=== PATIENT | male | born 1985 | race Caucasian/White ===

== ENCOUNTER → 2024-01-31 11:13 | Outpatient (REF) | payer OTHER, SELFPAY | LOC: CLAB 11:13 | PROVIDERS: ATTENDING PHYSICIAN Specialist | DX: Z30.2 Encounter for sterilization (principal) | CPT/HCPCS: 88302 ==

== ENCOUNTER 2024-05-22 07:37 | Emergency (ER) | payer OTHER, SELFPAY ==
[2024-05-22 07:44] VITALS: BP 130/80
[2024-05-22 08:21] LABS: COVID-19 Antigen Negative (Negative)
--- NOTE | 2024-05-22 08:33 | ED.GENMED ---
History of Present Illness
General
Chief Complaint: Cold/Flu/URI Symptoms
Source: patient
Exam Limitations: none
Time Seen by Provider: 05/22/24 08:26
Nursing documentation reviewed up to this point in time: agreed with
History of Present Illness
History of Present Illness:
38-year-old male presenting to the emergency department today with concerns of fever cough congestion body aches over the past 5 days. Also noticed some noise from his lungs. Has been using his daughter's inhaler at home with some improvement.
Also has been on a Z-Farhat over the past 5 days last dose yesterday. Denies significant chest pain denies significant chronic medical conditions.
Past History
Past History
ED Past Medical History: None; Negative HTN, Hypercholesterolemia, IDDM or NIDDM
ED Past Surgical History: Orthopedic (Right knee surgery, Right and left shoulder surgery. )
Social History
Tobacco: Non-smoker
Alcohol: Occasional
Personal:
Living: with family
Employment: Employed
Review of Systems
Review of Systems
Allergies reviewed?: Yes
All Other Systems: ROS reviewed and negative except as documented in HPI and ROS
Phy Exam
Physical Exam
Physical Exam:
GENERAL: Alert , in no apparent distress
EYE: pupils equal and reactive
NECK: Supple, no significant adenopathy.
ENT: o/p clr, mmm.
CARDIAC: Regular rate and rhythm .
LUNGS: Very slight end expiratory wheeze otherwise clear breath sounds bilaterally, no acute respiratory distress, no rales or rhonchi
ABDOMEN: Soft, without focal tenderness, no r/g, no cvat
NEUROLOGICAL: Alert and oriented, no focal neuro deficits
SKIN: Warm and dry, skin intact.
MUSCULOSKELETAL: No edema, well perfused.
PSYCH: Normal and appropriate interaction.
Course
Orders/Labs/Results
Orders:
Orders
05/22/24 07:50
COVID-19 Antigen Urgent
Source: Nasal Swab
Influenza A+B Rapid Molecular Urgent
NATI Source: Nasal Swab
Specimen Description:
05/22/24 08:33
Dexamethasone [Decadron] 10 mg PO NOW STA
Vital Signs
Initial and Last Documented VS:
Initial Vital Signs
Temp Pulse Resp BP Pulse Ox
98.1 F 85 18 130/80 100
05/22/24 07:44 05/22/24 07:44 05/22/24 07:44 05/22/24 07:44 05/22/24 07:44
Last Documented Vital Signs
Temp Pulse Resp BP Pulse Ox
98.1 F 85 18 130/80 100
05/22/24 07:44 05/22/24 07:44 05/22/24 07:44 05/22/24 07:44 05/22/24 07:44
MDM/Problems Addressed
MDM/Problems Addressed:
38-year-old male presenting to the emergency department with upper respiratory symptoms over the past 5 days. Here vital signs are normal afebrile. Patient positive for the flu which does explain patient's symptoms. Lungs have a very slight
expiratory wheeze he was given steroids for this but otherwise stable for outpatient management. No rales no evidence of secondary pneumonia. Patient has been on the antibiotic. Return precautions given otherwise.
*Critical Care Note
Total Time (30-74mins, 75-104mins- exclusive of procedures): Not Applicable
ED Attending Note
-
Portions of this chart may have been created with voice recognition software.� Occasional wrong word or��sound alike� substitutions may have occurred due to the inherent limitations of voice recognition software.
Discharge Plan
Departure
Patient Disposition: Home (Routine Discharge)
Date of Disposition: 05/22/24
Time of Disposition: 08:33
Patient with high blood pressure during this ER visit?: No
Condition: Good
Covid-19: Not Applicable
Discharge Problem:
Acute bronchitis, Influenza
Instructions: Flu, Acute Bronchitis, Adult (DC)
Prescriptions:
New
prednisone 20 mg tablet
40 mg PO DAILY 4 Days Qty: 8 0RF
albuterol sulfate 90 mcg/actuation HFA aerosol inhaler
2 puff inhalation Q6H PRN (Reason: shortness of breath or wheezing) Qty: 8.5 0RF
No Action
metoprolol succinate 25 MG tablet extended release 24 hr
25 mg PO DAILY PRN (Reason: palpitations) Qty: 30 0RF
ondansetron 4 MG tablet,disintegrating
4 mg PO TIDPRN PRN (Reason: nausea/vomiting) Qty: 10 0RF
amoxicillin-pot clavulanate 1 TABLET tablet
1 tab PO BID Qty: 14 0RF
pantoprazole [Protonix] 40 mg tablet,delayed release (DR/EC)
40 mg PO DAILY Qty: 20 0RF
Stand Alone Forms: Return to Work
Activity Restrictions/Additional Instructions:
You came to the emergency department today with concerns of ongoing symptoms likely secondary to the flu. You did have a very slight wheeze and evidence of some inflammation to your lungs. Please take the steroid as prescribed and use the inhaler
as needed. Please return for any ongoing fevers or worsening symptoms.
Interventions
Interventions:
*Risk Screen - Suicide Last Done: 05/22/24 07:44
*General Assessment Last Done: 05/22/24 07:44
*Neglect/Abuse Screening Last Done: 05/22/24 07:44
Discharge Date and Time
Print Language: SYRIAC
[2024-05-22] MEDS: DECADRON 10 MG PO (08:42)
== END 2024-05-22 12:38 | disposition home or self-care (01) ==
LOC: EMR 07:37
PROVIDERS: Emergency Medicine; EMERGENCY PHYSICIAN Student in an Organized Health Care Education/Training Program; FAMILY PHYSICIAN Family Medicine
DX: J20.9 Acute bronchitis, unspecified (principal); J11.1 Influenza due to unidentified influenza virus with other respiratory manifestations; Z11.52 Encounter for screening for COVID-19
CPT/HCPCS: 99283; 87502; 87811